=== PATIENT | male | born 1995 | race American Indian/Alaskan Native ===

== ENCOUNTER 2020-06-01 21:23 | Emergency (ER) | payer OTHER ==
[2020-06-01] MEDS ORDERED: HYDROcodone/ACETAMINOPHEN 5-325 MG TAB PO ONE (22:18)
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
[2020-06-02 00:49] VITALS: BP 118/74
== END 2020-06-02 00:49 | disposition home or self-care (01) ==
LOC: ED 21:23
DX: M79.605 Pain in left leg (principal); M54.2 Cervicalgia; M54.5 Low back pain; Z79.899 Other long term (current) drug therapy; V83.9XXA Unspecified occupant of special industrial vehicle injured in nontraffic accident, initial encounter; Y93.89 Activity, other specified; Y92.89 Other specified places as the place of occurrence of the external cause; Y99.0 Civilian activity done for income or pay
CPT/HCPCS: 72040; 72100